=== PATIENT | male | born 1995 | race Caucasian/White ===

== ENCOUNTER 2025-02-03 08:25 | Day surgery (SDC) | payer BC ==
[2025-02-03] MEDS ORDERED: Ondansetron 4 MG/2 ML SDV IVPUSH ONE (09:05)
[2025-02-03] MEDS ORDERED: Naloxone 0.4 MG/ML SDV IVPUSH PRN (09:05)
[2025-02-03] MEDS ORDERED: Sodium Chloride 0.9% 10 ML Syringe FLUSH PRN (09:09)
[2025-02-03] MEDS ORDERED: Iopamidol 612 MG/ML 100 ML Bottle IVPUSH ONE (09:09)
[2025-02-03 09:48] LABS: BASOPHILS ABSOLUTE AUTO 0.0 K/mm3 (0.0-0.2); BASOPHILS PERCENT AUTO 0.2 % (0.0-1.0); EOSINOPHILS ABSOLUTE AUTO 0.0 K/mm3 (0.0-0.4); EOSINOPHILS PERCENT AUTO 0.3 % (0.0-6.0); IMMATURE GRAN ABSOLUTE AUTO 0.03 K/mm3 (0.00-0.05); IMMATURE GRAN PERCENT AUTO 0.3 % (0.0-0.4); LYMPHOCYTES ABSOLUTE AUTO 1.9 K/mm3 (1.0-4.8); LYMPHOCYTES PERCENT AUTO 20.0 % (24.0-44.0); MEAN PLATELET VOLUME 11.2 fl (9.4-12.4); MONOCYTES ABSOLUTE AUTO 0.7 K/mm3 (0.0-0.8); MONOCYTES PERCENT AUTO 7.0 % (0.0-8.0); NEUTROPHILS ABSOLUTE AUTO 6.8 K/mm3 (1.8-7.7); NEUTROPHILS PERCENT AUTO 72.2 % (41.0-71.0); NRBC ABSOLUTE 0.00 (0.00-0.02); NRBC PERCENT 0.0 % (0.0-0.2); PLATELET COUNT,PLT 193 K/mm3 (150-400); RED BLOOD CELL COUNT 5.07 M/mm3 (4.52-5.90); WHITE BLOOD CELL COUNT,WBC 9.42 K/mm3 (3.9-11.3)
[2025-02-03] MEDS ORDERED: Sodium Chloride 0.9% 10 ML Syringe FLUSH ONE (10:00)
[2025-02-03] MEDS: Sodium Chloride 0.9% 10 ML Syringe FLUSH PRN (10:05)
[2025-02-03] MEDS: Iopamidol 612 MG/ML 100 ML Bottle IVPUSH ONE (10:06)
[2025-02-03 10:21] LABS: APPEARANCE,URINE CLEAR (Clear); GLUCOSE,URINE NEGATIVE (Negative); OCCULT BLOOD,URINE NEGATIVE (Negative)
[2025-02-03 10:22] LABS: A/G RATIO 1.2 (1-2); ALANINE AMINOTRANSFERASE,ALT 42.0 U/L (16-63); ASPARTATE AMNIOTRANSFERASE,AST 28.0 U/L (15-37); BILIRUBIN TOTAL 0.7 mg/dL (0.2-1.0); BLOOD UREA NITROGEN,BUN 9.0 mg/dL (7-18); CARBON DIOXIDE,CO2 24.0 mEq/L (21-32); CHLORIDE,CL 106.0 mEq/L (98-107); CREATININE 0.9 mg/dL (0.7-1.3); EST CRCL DRUG DOSING (CG) 135.32 mL/min; ESTIMATED GFR 120.0 mL/min (>60); GLUCOSE RANDOM 96.0 mg/dL (70-99); POTASSIUM,K 3.6 mEq/L (3.5-5.1); PROTEIN TOTAL,TP 7.8 g/dl (6.4-8.2); SODIUM,NA 142.0 mEq/L (136-145)
[2025-02-03 10:32] LABS: LACTIC ACID 1.2 mmol/L (0.4-2.0)
[2025-02-03] MEDS ORDERED: Heparin Sodium 5,000 Units/ML Vial ONE (12:36)
[2025-02-03] MEDS ORDERED: Heparin Sodium 5,000 Units/ML Vial SUBCUT ONE (12:36)
[2025-02-03] MEDS ORDERED: metroNIDAZOLE/Normal Saline 500 MG in Premix Bag 1 BAG IV ONE ×2 (12:37→12:58)
[2025-02-03] MEDS ORDERED: Levofloxacin/Dextrose 5%-Water 750 MG in Premix Bag 1 BAG IV ONE ×2 (12:42→12:58)
[2025-02-03] MEDS ORDERED: propofoL 1,000 MG/100 ML 100 ML ONE (12:56)
[2025-02-03] MEDS ORDERED: Midazolam 1 MG/ML 2 ML SDV ONE (12:57)
[2025-02-03] MEDS ORDERED: propofoL 500 MG/50 ML 50 ML ONE (12:57)
[2025-02-03] MEDS ORDERED: fentaNYL 250 MCG/5 ML SDV ONE (12:57)
[2025-02-03] MEDS ORDERED: dexmedeTOMIDine HCl 200 MCG/2 ML SDV ONE (12:58)
[2025-02-03] MEDS ORDERED: Lactated Ringers 1,000 ML ONE (13:04)
[2025-02-03] MEDS ORDERED: Ondansetron 4 MG/2 ML SDV ONE (13:10)
[2025-02-03] MEDS ORDERED: Dexamethasone 4 MG/ML 5 ML MDV ONE (13:10)
[2025-02-03] MEDS ORDERED: Ondansetron 4 MG/2 ML SDV IVPUSH PRN (13:45)
[2025-02-03] MEDS ORDERED: fentaNYL 100 MCG/2 ML SDV IVPUSH PRN (13:45)
[2025-02-03] MEDS ORDERED: Ketorolac 30 MG/ML SDV ONE (14:15)
[2025-02-03] MEDS ORDERED: Ketorolac 30 MG/ML SDV IVPUSH SCH (14:45)
[2025-02-03] MEDS ORDERED: Lactated Ringers 1,000 ML IV SCH (14:45)
== END 2025-02-03 16:50 | disposition home or self-care (01) ==
LOC: JD.ED 08:25 → JD.SDS 12:57
PROVIDERS: ATTEND Surgery
DX: K35.30 Acute appendicitis with localized peritonitis, without perforation or gangrene (principal); K42.0 Umbilical hernia with obstruction, without gangrene; E66.9 Obesity, unspecified; Z88.0 Allergy status to penicillin; Z88.8 Allergy status to other drugs, medicaments and biological substances; Z79.899 Other long term (current) drug therapy
CPT/HCPCS: 36415; 44970; 49592; 74177; 76705; 80053; 81003; 83605; 83690; 85025; 99285; A9270; J1100; J1644; J1836; J1885; J1956; J2003; J2250; J2405; J2704; J3010; J7030; J7120; Q9967; 00840; 99140; J3490